=== PATIENT | male | born 1990 | race African-American/Black ===

== ENCOUNTER 2017-04-02 15:47 | Emergency (ER) | payer OTHER ==
[~2017-04-02] VITALS: Ht 182.9 cm; Wt 88.1 kg
[2017-04-02 15:53] VITALS: TEMP 36.7; Ht 182.9 cm; Wt 88.1 kg
[2017-04-02] MEDS ORDERED: CLINDAMYCIN HCL 150 MG CAP PO ONE (16:30)
[2017-04-02] MEDS ORDERED: CLON1TAB3 PO (16:39)
[2017-04-02] MEDS ORDERED: CLIN300C2 PO (16:39)
[2017-04-02] MEDS ORDERED: TERB1CRE41 TOP (16:39)
[2017-04-02 16:47] VITALS: BP 147/87; PULSE 80; O2SAT 97
--- NOTE | 2017-04-02 17:43 | EMERGENCY ROOM VISIT NOTE ---
History Report prepared by Yevgeniy: Jaspreet Montiel Under the Supervision of: Dr. Aditya Musa M.D. First contact with patient: 16:12 Chief Complaint: WOUND INFECTION Stated Complaint: INFECTION LEFT FOOT, RECTAL PAIN, ANXIETY, PANIC Nursing Triage Summary: triage note: pt reports "i have had left upper dental pain on and off for months and i have anxiety and panic attacks and an infection on my left foot it has been there for a week and i put cream on it and it is turning green now.' History of Present Illness The patient is a 26 year old male who presents to the Emergency Room with complaints of a worsening left foot infection that started ten days ago. He rates his discomfort as an 8/10 in severity. He reports that he had noticed his foot was itchy ten days ago. The patient reports that he is no longer able to ambulate without pain in his feet and noticed a green color on his feet since. The patient also reports that he has been feeling nauseous and febrile intermittently for a week. He states that he has applied athlete's foot cream to the infected area, but denies any relief of symptoms. The patient states that he has been trying to clean his feet at least every other day. He reports that he typically wears [employer] sneakers. The patient states that he is allergic to Tylenol, but denies any other allergies. The patient states he moved from [place] a couple of days ago and admits he has a family doctor in this area arranged. The patient also reports he has a history of anxiety, which he takes 1 mg of Klonopin as needed for. He has had intermittent left upper dental pain for months. The patient denies any history of diabetes, abdominal pain, and urinary symptoms. Source of History: patient Onset: ten days ago Position: foot (bilateral) Symptom Intensity: 8/10 Quality: other (infection) Timing: worsening Modifying Factors (Worsening): exertion Associated Symptoms: + fevers, + nausea, No chills, No abdominal pain, No urinary symptoms Review of Systems See HPI for pertinent positives & negatives. A total of 10 systems reviewed and were otherwise negative. Past Medical & Surgical Medical Problems: (1) Anxiety Family History Patient reports no known family medical history. Social History Smoking Status: Never Smoker Drug Use: none Current/Historical Medications Scheduled Clindamycin Hcl (Cleocin), 300 MG PO TID Terbinafine Hcl (Topical) (Antifungal Foot), 1 APPLN TOP BID Scheduled PRN Clonazepam (Klonopin), 1 MG PO BID PRN for Anxiety/Agitation Physical Exam Vital Signs Date Time Temp Pulse Resp B/P (MAP) Pulse Ox O2 Delivery O2 Flow Rate FiO2 04/02/17 16:47 80 18 147/87 97 Room Air 04/02/17 15:53 36.7 79 18 160/95 99 Room Air Physical Exam GENERAL: Patient is in no acute distress. HEENT: No drainable dental abscess seen. No acute trauma, normocephalic atraumatic, mucous membranes moist, no nasal congestion, no scleral icterus. NECK: No stridor, no adenopathy, no meningismus, trachea is midline. LUNGS: Clear to auscultation bilaterally, no wheeze, no rhonchi, breath sounds equal. HEART: Without murmurs gallops or rubs, regular rate and rhythm. ABDOMEN: Soft, nontender, bowel sounds positive, no hernias, no peritonitis. EXTREMITIES: Apparent fungal infection to left root especially between toes. No obvious cellulitis. Blister to the underside of the first toe which was opened and a culture was sent. NEUROLOGIC: Oriented x 3, no acute motor or sensory deficits, no focal weakness. SKIN: No rash, no jaundice, no diaphoresis. Medical Decision & Procedures Medications Administered Medications (Trade) Dose Ordered Sig/Joselito Route Start Time Stop Time Status Last Admin Dose Admin Clindamycin HCl (Cleocin Cap) 300 mg ONE ONCE PO 04/02/17 16:30 04/02/17 16:31 DC 04/02/17 16:48 300 MG ED Course 1613: The patient was evaluated in room B08. A complete history and physical exam was performed. 1630: Cleocin Cap 300 mg PO. 1632: Medication Reconciliation: I attest that I have personally reviewed the patient's current medication list. Blood Pressure Screening: Patient was found to have an elevated blood pressure and was referred to their primary doctor for recheck and further treatment. 1640: I reevaluated the patient. I discussed results and discharge instructions : He verbalized understanding and agreement. The patient is ready for discharge. Medical Decision The differential diagnosis includes but is not limited to: athlete's foot, cellulitis, dental abscess, osteomyelitis, neurovascular compromise. The patient is not toxic or febrile. His biggest complaint is pain in the left foot. He appears to have athletes foot. No cellulitis or osteomyelitis by exam. His dental pain complaint was looked into as well. I don't see any drainable abscess. No large dental carry. No bleeding from the gumline. I did open a blister underneath the left big toe. This was sent for culture. The patient is being discharged on Lamisil for the athlete's foot. Clindamycin for the possibility of a bacterial superinfection. He did ask that I give him a few Klonopin as he takes this regularly and has run out. He asked for pain medication as well, I have decided not to write any pain medication prescriptions for him. He can use alnn-ddd-lsqicdh medications for now. He does have a family doctor appointment scheduled. The patient is going to be discharged. He was encouraged to keep his foot out of a shoe and elevated. If worsening, he can return. [place] Drug Monitoring Program Search Results: patient reviewed within database, no issues identified Impression Primary Impression: Athletes foot Additional Impression: Pain, dental Scribe Attestation The scribe's documentation has been prepared under my direction and personally reviewed by me in its entirety. I confirm that the note above accurately reflects all work, treatment, procedures, and medical decision making performed by me. Departure Information Dispostion Home / Self-Care Prescriptions Clonazepam (Klonopin) 1 Mg Tab 1 MG PO BID Y for Anxiety/Agitation, #10 TAB Prov: Aditay Musa M.D. 04/02/17 Clindamycin Hcl (CLEOCIN) 300 Mg Cap 300 MG PO TID for 10 Days, #30 CAP Prov: Aditya Musa M.D. 04/02/17 Terbinafine Hcl (Topical) (ANTIFUNGAL FOOT) 1 % Cre 1 APPLN TOP BID for 30 Days, #1 TUBE 3 Refills Prov: Aditya Musa M.D. 04/02/17 Referrals No Doctor, Assigned (PCP) Forms HOME CARE DOCUMENTATION FORM, IMPORTANT VISIT INFORMATION, WORK / SCHOOL INSTRUCTIONS Patient Instructions My [facility] Additional Instructions clindamycin 3x per day for 10 days foot cream 2x per day for 1 month Klonopin as before as need follow with imelda currie and dentist return for worsening symptoms, fever or lack of improvement call here in 3-4 days for your culture results Problem Qualifiers
== END 2017-04-02 16:55 | disposition home or self-care (01) ==
LOC: C.EDB 15:51
DX: B35.3 Tinea pedis (principal); K08.89 Other specified disorders of teeth and supporting structures; F41.9 Anxiety disorder, unspecified

== ENCOUNTER 2017-04-24 15:50 | Emergency (ER) | payer OTHER ==
[~2017-04-24] VITALS: Ht 182.9 cm; Wt 87.0 kg
[~2017-04-24 15:50] MED LIST: CLON1TAB3 PO; TERB1CRE41 TOP
[2017-04-24 15:57] VITALS: TEMP 36.3; Ht 182.9 cm; Wt 87.0 kg
[2017-04-24] MEDS ORDERED: OXYC1TAB3 PO ×2 (16:45→16:49)
[2017-04-24] MEDS ORDERED: ALPR1TAB3 PO (16:45)
--- NOTE | 2017-04-24 16:45 | EMERGENCY ROOM VISIT NOTE ---
History Report prepared by Yevgeniy: Xiomy Roa Under the Supervision of: Dr. Nolan Shelby M.D. First contact with patient: 16:18 Chief Complaint: ANXIETY Stated Complaint: INFECTION IN FEET,ANXIETY/PANIC ATTACKS History of Present Illness The patient is a 26 year old male who presents to the Emergency Room with complaints of constant anxiety beginning today. The patient states that he has a foot infection on the bottom of his left foot. He reports that he got a biopsy of the infection here and was told that it was MRSA. He notes that the foot infection has been persisting and it is causing it increasing anxiety. He complains of a tooth ache and headache.He notes that he has been taking Amoxicillin without relief of his tooth ache. He notes that he has a psychiatrist appointment at the end of the month. Source of History: patient Onset: today Position: other (global) Quality: other (anxiety) Timing: constant Associated Symptoms: + headache Note: Pt complains of foot infection and tooth pain. Review of Systems See HPI for pertinent positives & negatives. A total of 10 systems reviewed and were otherwise negative. Past Medical & Surgical Medical Problems: (1) Anxiety Family History Patient reports no known family medical history. Social History Smoking Status: Never Smoker Drug Use: none Occupation Status: employed Current/Historical Medications Scheduled Hydroxyzine Pamoate (Vistaril), 50 MG PO Q6H Scheduled PRN Alprazolam (Xanax), 1 MG PO Q6H PRN for Anxiety/Insomnia Clonazepam (Klonopin), 1 MG PO BID PRN for Anxiety/Agitation Oxycodone Immediate Rel Tab (Roxicodone Ir), 1-2 TAB PO Q4H PRN for Severe Pain Oxycodone Ir (Roxicodone Ir), 10 MG PO Q6 PRN for Severe Pain Allergies Coded Allergies: Acetaminophen (Unverified Allergy, Unknown, UPSET STOMACH, 04/24/17) Physical Exam Vital Signs Date Time Temp Pulse Resp B/P (MAP) Pulse Ox O2 Delivery O2 Flow Rate FiO2 04/24/17 17:00 84 18 128/88 99 04/24/17 15:57 36.3 102 16 152/87 96 Physical Exam GENERAL: Patient is a healthy-appearing well-nourished male HEAD: Normocephalic atraumatic EYES: Ocular movements intact pupils equal and react to light OROPHARYNX mucous membranes are moist no exudates present no erythema or edema present, No evidence of Jagdish's angina on exam, NECK: Supple no nuchal rigidity CHEST: Good equal expansion LUNGS: Clear and equal to auscultation CARDIAC: Normal S1 and S2 ABDOMEN: Soft nontender no guarding BACK: No CVA tenderness EXTREMITIES: No pain upon palpation normal muscle strength in all groups no clubbing cyanosis or edema. Athletes foot to the left foot NEURO: Patient is following commands and answering questions appropriately. Alert and oriented x3 Cranial Nerves 2-12 grossly intact Medical Decision & Procedures Medications Administered Medications (Trade) Dose Ordered Sig/Joselito Route Start Time Stop Time Status Last Admin Dose Admin Oxycodone HCl (Roxicodone Immediate Rel 5MG Home Pack) 1 homepack UD ONCE PO 04/24/17 17:00 04/24/17 17:01 DC 04/24/17 17:00 1 HOMEPACK Hydroxyzine HCl (Vistaril Tab) 25 mg NOW STAT PO 04/24/17 16:46 04/24/17 16:47 DC 04/24/17 17:00 25 MG Clotrimazole (Lotrimin 1% Crm) 1 appln NOW STAT EXT 04/24/17 16:46 04/24/17 16:47 DC 04/24/17 17:00 1 APPLN ED Course 1618: Past medical records reviewed. The patient was evaluated in room A8. A complete history and physical examination was performed. 1646: Clotrimazole 1 appln EXT, Vistaril Tab 25mg PO. 1700: Oxycodone HCl 1 homepack PO. 1706: Upon reexamination the patient is doing well. I discussed results and treatment plan with the patient. He verbalizes agreement and understanding. The patient is ready for discharge. Medical Decision Differential diagnosis includes dental pain. Medication Reconciliation: I attest that I have personally reviewed the patient' s current medication list Blood Pressure Screening: Patient was found to have an elevated blood pressure and was referred to their primary care doctor for recheck and further treatment This is a 26-year-old male who presents emergency department complaining of athlete's foot as well as dental pain. The patient is also requesting Klonopin for his anxiety. I told the patient in no uncertain terms that I will not prescribe both her narcotic as well as benzodiazepine. The patient was unhappy with this area and he will settle for Vistaril. He was then given oxycodone for his dental pain I stressed the need for follow-up with a dentist. He has no evidence of facial infection is taking amoxicillin. The patient is also concerned about his left foot. It appears to be athlete's foot. The patient denies being suicidal or homicidal and does have a follow-up with psychiatry. Case management was in agreement with the treatment plan. Impression Primary Impression: Pain, dental Additional Impressions: Athletes foot Hypertension Scribe Attestation The scribe's documentation has been prepared under my direction and personally reviewed by me in its entirety. I confirm that the note above accurately reflects all work, treatment, procedures, and medical decision making performed by me. Departure Information Dispostion Home / Self-Care Prescriptions Oxycodone Immediate Rel Tab (ROXICODONE IR) 5 Mg Tab 1-2 TAB PO Q4H Y for Severe Pain, #14 TAB Prov: Nolan Shelby MD 04/24/17 Hydroxyzine Pamoate (VISTARIL) 50 Mg Cap 50 MG PO Q6H for 7 Days, #21 CAP PRN ITCH Prov: Nolan Shelby MD 04/24/17 Referrals No Doctor, Assigned (PCP) Forms HOME CARE DOCUMENTATION FORM, IMPORTANT VISIT INFORMATION Patient Instructions ED Fungal Infec Athlete Foot, ED Tooth Pain, Hypertension Dc, My [facility] Additional Instructions Need follow up with Dentist Follow up with Psychiatry He will be given narcotic medication in the emergency department. Do not mix with other medications, alcohol and do not drive under the influence of this medication. 600 mg Ibuprofen every 6 hours Take Oxy IR for breakthrough pain You have been examined and treated today on an emergency basis only. This is not a substitute for, or an effort to provide, complete comprehensive medical care. It is impossible to recognize and treat all injuries or illnesses in a single emergency department visit. It is therefore important that you follow up closely with [facility]. Call as soon as possible for an appointment. Thank you for your time and consideration. I look forward to speaking with you again soon. Please don't hesitate to call us if you have any questions. Problem Qualifiers Additional Impressions: Athletes foot Laterality: left Qualified Codes: B35.3 - Tinea pedis Hypertension Hypertension type: unspecified Qualified Codes: I10 - Essential (primary) hypertension
[2017-04-24] MEDS ORDERED: hydrOXYzine HCL 25 MG TAB PO STA (16:46)
[2017-04-24] MEDS ORDERED: CLOTRIMAZOLE 1% CR 15 GM TUBE EXT STA (16:46)
[2017-04-24] MEDS ORDERED: HYDR50CA2 PO (16:48)
[2017-04-24 17:00] VITALS: BP 128/88; PULSE 84; O2SAT 99
[2017-04-24] MEDS ORDERED: OXYCODONE IR HOME PACK PO ONE (17:00)
== END 2017-04-24 17:00 | disposition home or self-care (01) ==
LOC: C.EDB 15:51 → C.EDA 17:00
DX: B35.3 Tinea pedis (principal); K08.89 Other specified disorders of teeth and supporting structures; R51 Headache; I10 Essential (primary) hypertension; F41.9 Anxiety disorder, unspecified

== ENCOUNTER 2017-06-25 17:42 | Emergency (ER) | payer OTHER ==
[~2017-06-25] VITALS: Ht 182.9 cm; Wt 86.0 kg
[~2017-06-25 17:42] MED LIST changes: +ALPR1TAB3 PO; +OXYC1TAB3 PO; -TERB1CRE41 TOP
[2017-06-25 17:44] VITALS: BP 148/91; PULSE 81; TEMP 36.7; O2SAT 100; Ht 182.9 cm; Wt 86.0 kg
[2017-06-25] MEDS ORDERED: AMOX875T PO (18:12)
[2017-06-25] MEDS ORDERED: TRAM-10 PO (18:12)
--- NOTE | 2017-06-25 18:15 | EMERGENCY ROOM VISIT NOTE ---
ED Visit Note First contact with patient: 17:54 CHIEF COMPLAINT: Toothache HISTORY OF PRESENT ILLNESS: This 26-year-old male patient presented to the emergency department, ambulatory, complaining of a progressive toothache for past 2-3 days. The patient states 2 weeks ago, he was seen by a dentist. He was told he had several cavities, needed fillings, and his gum was receding. The patient states he had a few of the cavities filled, however his dentist was unable to fill them all at once. The patient states a few days ago, he began experiencing pain in his left upper, back molar. He states the pain is causing a headache, and he has not been able to tolerate Gustavo hot or cold foods. The patient has been taking 800 mg ibuprofen 3 times daily, and did start taking amoxicillin and proximally 3 days ago. The patient states he was told by his dentist that he was not to start the antibiotics right away, however if he began experiencing pain, he should start them. The pain is now steady and severe and radiates to the face. The patient called his dentist today, however was unable to get an appointment until the of this month. They rate their pain a 7/10 and the ibuprofen he has been taking has not relieved the pain. Denies facial swelling or fever. The patient denies any discharge from the mouth. The patient states he has also been experiencing some congestion, runny nose, and chills. He states he is concerned that he could have the flu. The patient denies any cough, chest pain, chest congestion, objective fever, or other associated symptoms. He states he did not get a flu shot this year, and questions if he should get one now. REVIEW OF SYSTEMS: A 6 system review of systems was completed with positives and pertinent negatives listed in the HPI. ALLERGIES: Tylenol - causes an upset stomach MEDICATIONS: Xanax, Cymbalta, ibuprofen, "something for my stomach", amoxicillin - unknown dose PMH: Anxiety, insomnia SOCIAL HISTORY: The patient lives locally with family. He denies drug, alcohol , tobacco use. PHYSICAL EXAM: Vitals are noted on the nurse's note and reviewed by myself. Vital signs stable. Temperature 36.7C orally. GENERAL: This is a 26-year-old male, in no acute distress, nondiaphoretic, well-developed well-nourished. Mouth: The #16 tooth is very carious and the gum is swollen and tender around it, without any discharge or signs of an abscess. The remainder of the pharynx and tonsils are without erythema, edema, or exudate. The airway is patent. There is no facial swelling, cervical or submandibular lymphadenopathy. The patient appears uncomfortable and in pain. The patient has overall good dental hygiene, but does have several cavities. EARS: External auditory canals clear, tympanic membranes pearly hannah without erythema or effusion bilaterally. ED COURSE: Patient was seen and evaluated as above. I discussed with him the course of treatment as far as switching antibiotics from amoxicillin to Augmentin. The patient requested no pain medication with Tylenol, as it causes an upset stomach. I discussed with him that I would give him a small course of tramadol to take, and he could follow up with his dentist if he needs more pain control. I did consult with PDM P prior to giving the patient any narcotics, and did see that he has had several prescriptions for oxycodone in addition to his prescribed Xanax over the past few weeks. Discharge instructions were reviewed, and the patient was discharged home in good condition. DIFFERENTIAL DIAGNOSIS: Odontalgia, abscess, cellulitis, upper respiratory infection, sinus infection, influenza, and others DIAGNOSIS: Odontalgia DISCHARGE INSTRUCTIONS & TREATMENT: You have been treated in the Emergency Department for Dental Pain. You have been prescribed tramadol to be used for pain control. This is a narcotic medication. You cannot drive or consume alcohol while on this medicine. This medicine should only be used for pain that cannot be controlled with kaqn-pqv-bfvplbv pain medicines. You were prescribed Augmentin to be taken twice daily. Take this medication in place of the amoxicillin that you are currently taking. This is an antibiotic. All antibiotics have the potential to cause diarrhea. Stop this medication and contact a medical provider if you were to develop any significant adverse side effects including: wheezing, shortness of breath, passing out, vomiting, or a diffuse rash. Always take antibiotics as directed and COMPLETE the ENTIRE course regardless of the improvement of your symptoms. For pain control, you can use the following joap-bjg-tgnbtuh medicines (if >12 yo): Ibuprofen(Motrin, Advil) may be used for fever or pain. Use 600mg every six hours as needed. Take with food. Avoid using more than 2400mg in a 24 hour period. Do not use 2400mg per day for more than three consecutive days without physician direction. Prolonged inappropriate use can lead to stomach upset or ulcers. (AND/OR) Acetaminophen(Tylenol) may be used for fever or pain. Use 1000mg every six hours as needed. Avoid using more than 3000mg in a 24 hour period. Refrain from smoking cigarettes or using chewing tobacco until you have been evaluated by your dentist. Keeping beverages lukewarm and consuming soft foods can decrease your pain. Warm compresses over the affected area may offer some relief. You MUST seek evaluation of your dental pain by a dentist following your visit to the Emergency Department. The Emergency Department is not capable of treating dental issues long-term. You should call your dentist as soon as possible to make an appointment for evaluation of your dental pain. Return to the emergency department if you develop the following symptoms despite treatment course outlined above: fever, intractable pain, increased redness, swelling, or purulent discharge. Current/Historical Medications Scheduled Amoxicillin & Pot Clavulanate (Augmentin 875-125 mg), 1 TAB PO BID Duloxetine HCl (Cymbalta), 30 MG PO DAILY Scheduled PRN Alprazolam (Xanax), 1 MG PO Q6H PRN for Panic Attack/Anxiety Ibuprofen (Ibuprofen), 800 MG PEG Q8 PRN for Pain Tramadol (Ultram), 50 MG PO Q8H PRN for Pain Allergies Coded Allergies: Acetaminophen (Unverified Allergy, Unknown, UPSET STOMACH, 04/24/17) Vital Signs Date Time Temp Pulse Resp B/P (MAP) Pulse Ox O2 Delivery O2 Flow Rate FiO2 06/25/17 17:44 36.7 81 18 148/91 100 Room Air Departure Information Impression Primary Impression: Odontalgia Dispostion Home / Self-Care Condition GOOD Prescriptions Amoxicillin & Pot Clavulanate (Augmentin 875-125 mg) 1 Tab Tab 1 TAB PO BID for 10 Days, #20 TAB Prov: Nae Parada PA-C 06/25/17 Tramadol (Ultram) 50 Mg Tab 50 MG PO Q8H Y for Pain, #9 TAB Prov: Nae Parada PA-C 06/25/17 Referrals No Doctor, Assigned (PCP) Patient Instructions ED Tooth Pain, [facility] Additional Instructions You have been treated in the Emergency Department for Dental Pain. You have been prescribed tramadol to be used for pain control. This is a narcotic medication. You cannot drive or consume alcohol while on this medicine. This medicine should only be used for pain that cannot be controlled with oiza-ogm-vsccpyb pain medicines. You were prescribed Augmentin to be taken twice daily. Take this medication in place of the amoxicillin that you are currently taking. This is an antibiotic. All antibiotics have the potential to cause diarrhea. Stop this medication and contact a medical provider if you were to develop any significant adverse side effects including: wheezing, shortness of breath, passing out, vomiting, or a diffuse rash. Always take antibiotics as directed and COMPLETE the ENTIRE course regardless of the improvement of your symptoms. For pain control, you can use the following wguf-swp-zuuyjbg medicines (if >12 yo): Ibuprofen(Motrin, Advil) may be used for fever or pain. Use 600mg every six hours as needed. Take with food. Avoid using more than 2400mg in a 24 hour period. Do not use 2400mg per day for more than three consecutive days without physician direction. Prolonged inappropriate use can lead to stomach upset or ulcers. (AND/OR) Acetaminophen(Tylenol) may be used for fever or pain. Use 1000mg every six hours as needed. Avoid using more than 3000mg in a 24 hour period. Refrain from smoking cigarettes or using chewing tobacco until you have been evaluated by your dentist. Keeping beverages lukewarm and consuming soft foods can decrease your pain. Warm compresses over the affected area may offer some relief. You MUST seek evaluation of your dental pain by a dentist following your visit to the Emergency Department. The Emergency Department is not capable of treating dental issues long-term. You should call your dentist as soon as possible to make an appointment for evaluation of your dental pain. Return to the emergency department if you develop the following symptoms despite treatment course outlined above: fever, intractable pain, increased redness, swelling, or purulent discharge.
[2017-06-25] MEDS ORDERED: CYM/30 PO (18:17)
[2017-06-25] MEDS ORDERED: MTR800 PEG (18:17)
== END 2017-06-25 18:30 | disposition home or self-care (01) ==
LOC: C.EDB 17:43 → C.EDD 18:30
DX: K08.89 Other specified disorders of teeth and supporting structures (principal)

== ENCOUNTER 2017-07-03 17:29 | Emergency (ER) | payer OTHER ==
[~2017-07-03] VITALS: Ht 182.9 cm; Wt 79.7 kg
[~2017-07-03 17:29] MED LIST changes: +AMOX875T PO; -CLON1TAB3 PO; +CYM/30 PO; +MTR800 PEG; -OXYC1TAB3 PO; +TRAM-10 PO
[2017-07-03 17:33] VITALS: BP 125/79; PULSE 90; TEMP 36.9; O2SAT 97; Ht 182.9 cm; Wt 79.7 kg
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
[2017-07-03] MEDS ORDERED: BUPIVACAINE/EPINEPHRINE 0.5% 1:200,000 1.8 ML CARP ONE (19:11)
[2017-07-03] MEDS ORDERED: BENZ10GE38 DT (19:29)
[2017-07-03] MEDS ORDERED: CLC/300 PO (19:29)
== END 2017-07-03 19:36 | disposition home or self-care (01) ==
LOC: C.EDB 17:29 → C.EDD 19:36
DX: K08.89 Other specified disorders of teeth and supporting structures (principal); F32.9 Major depressive disorder, single episode, unspecified; F41.9 Anxiety disorder, unspecified; Z79.899 Other long term (current) drug therapy

== ENCOUNTER 2017-08-03 15:55 | Emergency (ER) | payer BC, OTHER ==
[~2017-08-03] VITALS: Ht 182.9 cm; Wt 85.8 kg
[~2017-08-03 15:55] MED LIST changes: -ALPR1TAB3 PO; -AMOX875T PO; +BENZ10GE38 DT; -CYM/30 PO; -MTR800 PEG
[2017-08-03 16:09] VITALS: BP 149/89; TEMP 37.1; Ht 182.9 cm; Wt 85.8 kg
[2017-08-03] MEDS ORDERED: TRAM-10 PO (16:41)
[2017-08-03] MEDS ORDERED: BENZ10GE38 DT (16:41)
[2017-08-03] MEDS ORDERED: AMOX500C3 PO (16:45)
[2017-08-03] MEDS ORDERED: ALPR1TAB3 PO (16:45)
[2017-08-03 16:53] VITALS: PULSE 60; O2SAT 100
[2017-08-03] MEDS ORDERED: MTR800 PO (18:17)
[2017-08-03] MEDS ORDERED: CYM/30 PO (18:17)
--- NOTE | 2017-08-03 23:30 | EMERGENCY ROOM VISIT NOTE ---
History First contact with patient: 16:07 Chief Complaint: DENTAL PAIN Stated Complaint: HOLE IN UPPER TOOTH CAUSING PAIN Nursing Triage Summary: pt reports filling in L upper tooth fell out about 3 days ago History of Present Illness The patient is a 27 year old male who presents to the Emergency Room with complaints of severe left upper dental pain after a filling fell out approximately one week ago. The patient at [facility], and cannot get an appointment until 08/13/17. The patient has been taking ibuprofen and Ultram for his pain without relief. He presents to the emergency department requesting pain relief. He rates his discomfort an 8 out of 10. Review of Systems 10 system review was performed and was negative except for pertinent positives and negatives as indicated in history of present illness Past Medical/Surgical History Medical Problems: (1) Anxiety Family History Patient reports no known family medical history. Social History Smoking Status: Never Smoker Drug Use: none Marital Status: single Occupation Status: employed Current/Historical Medications Scheduled Amoxicillin (Amoxil), 1 DOSE PO TID Duloxetine HCl (Cymbalta), 30 MG PO DAILY Scheduled PRN Alprazolam (Xanax), 1 MG PO Q6H PRN for Panic Attack/Anxiety Benzocaine (Dental) (Anbesol), 1 APPLN DT QID PRN for Dental Pain Ibuprofen (Ibuprofen), 800 MG PO Q8 PRN for Pain Tramadol (Ultram), 50 MG PO Q8H PRN for Pain Physical Exam Vital Signs Date Time Temp Pulse Resp B/P (MAP) Pulse Ox O2 Delivery O2 Flow Rate FiO2 08/03/17 16:53 60 20 100 Room Air 08/03/17 16:09 37.1 59 20 149/89 98 Room Air Physical Exam CONSTITUTIONAL: Healthy and well nourished. Alert and oriented X 3 with flat affect. HEENT: Normocephalic, atraumatic. Pupils equal, round and reactive. No facial edema noted. Ears and nares are clear. OROPHARYNX: Examination does not show any left maxillary gingival erythema, fluctuance or pointing. I do not see any significant dental fractures or caries in the area where the patient is complaining of discomfort. NECK: Full active range of motion without discomfort. INTEGUMENTARY: No rash or other significant dermatologic conditions noted. NEUROLOGIC: No focal neurologic deficits noted. Facial sensations are intact. Medical Decision & Procedures ED Course Patient history and physical exam were performed. Nurse's notes were reviewed. Vital signs were reviewed and were normal. I also reviewed prior medical documentation, showing that the patient has been here frequently over the past few months for dental pain. On his last visit, the patient was documented as lying about having other opioids at home. He was advised that no opioids would be prescribed, and was also offered a dental block. As medicine was being sent from the pharmacy, the patient left the emergency department. It was decided through the pain management committee that the patient would not receive any prescription narcotics. The patient was advised of this decision, and encouraged to seek further pain management from his dentist or other clinic. The patient was also advised that the emergency department does not provide chronic pain management. It is noted on his last dictation that he received a prescription for oxycodone from [facility] that was not disclosed to ED staff, and was found on PDMP review. The patient was provided dental wax, and encouraged to use his home Ultram as needed for pain, along with alternating ibuprofen and Tylenol. The patient voiced understanding, and rated his discomfort an 8 out of 10 at the time of discharge. Medical Decision [place] Drug Monitoring Program Search Results: patient reviewed within database, see additional documentation Medication Reconcilliation Current Medication List: was personally reviewed by me Blood Pressure Screening Patient's blood pressure: Normal blood pressure Impression Primary Impression: Pain, dental Departure Information Dispostion Home / Self-Care Condition GOOD Forms HOME CARE DOCUMENTATION FORM, IMPORTANT VISIT INFORMATION Patient Instructions [facility] Additional Instructions Use dental wax to cover the tooth for additional relief. You must see her dentist for definitive care. The Emergency Department will not provide any further narcotic prescriptions for your pain.
== END 2017-08-03 16:54 | disposition home or self-care (01) ==
LOC: C.EDB 15:56 → C.EDD 16:54
DX: K08.89 Other specified disorders of teeth and supporting structures (principal); F41.9 Anxiety disorder, unspecified; Z79.899 Other long term (current) drug therapy

== ENCOUNTER 2017-08-21 16:31 | Emergency (ER) | payer OTHER ==
[~2017-08-21 16:31] MED LIST changes: +ALPR1TAB3 PO; +AMOX500C3 PO; +CYM/30 PO; +MTR800 PO
[2017-08-21 16:42] VITALS: TEMP 36.9
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
--- NOTE | 2017-08-21 17:48 | DIAGNOSTIC IMAGING REPORT ---
R SHOULDER MIN 2 VIEWS ROUTINE, R FOREARM 2 VIEWS ROUTINE HISTORY: 27 years-old Male R shoulder pain s/p fall acute right upper extremity pain status post fall COMPARISON: None available TECHNIQUE: 3 views of the right shoulder and 3 views of the right forearm FINDINGS: SHOULDER: No acute fracture, dislocation or significant degenerative changes. Imaged lung cano are clear. FOREARM: No acute fracture, dislocation or significant degenerative changes. Bone island of the distal ulna proximal to the ulnar styloid measures 7 mm. Additional small bone islands of the distal radius noted. There is no opaque foreign body. Soft tissues are unremarkable. No large joint effusion about the elbow identified. IMPRESSION: No acute fracture or dislocation of the right shoulder or forearm. The above report was generated using voice recognition software. It may contain grammatical, syntax or spelling errors. Electronically signed by: Prateek Evans M.D. 08/21/2017 5:47 PM Dictated Date/Time: 08/21/2017 5:44 PM
--- NOTE | 2017-08-21 17:53 | DIAGNOSTIC IMAGING REPORT ---
THORACIC SPINE 3 VIEWS ROUTINE CLINICAL HISTORY: 27 years-old Male presenting with Fall, Back pain. TECHNIQUE: 3 views of the thoracic spine were obtained. COMPARISON: None. FINDINGS: Normal thoracic kyphosis. Vertebral bodies maintain normal height and alignment. Intervertebral disc spaces preserved. Minimal multilevel degenerative change noted throughout. No evidence of a compression deformity. No subluxation. Minimal dextrocurvature of the thoracic spine noted. Cardiomediastinal silhouette normal. Lungs and pleural spaces clear. IMPRESSION: No radiographic evidence of acute osseous injury of the thoracic spine. Electronically signed by: Hans Cisse M.D. 08/21/2017 5:52 PM Dictated Date/Time: 08/21/2017 5:51 PM
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
[2017-08-21 18:05] VITALS: BP 145/87; PULSE 86; O2SAT 98
== END 2017-08-21 18:16 | disposition home or self-care (01) ==
LOC: C.EDB 16:32 → C.EDD 18:16
DX: T14.8XXA Other injury of unspecified body region, initial encounter (principal); W10.9XXA Fall (on) (from) unspecified stairs and steps, initial encounter; Y93.02 Activity, running; Y99.8 Other external cause status; H11.33 Conjunctival hemorrhage, bilateral; W51.XXXA Accidental striking against or bumped into by another person, initial encounter; F41.9 Anxiety disorder, unspecified; Z79.899 Other long term (current) drug therapy